=== PATIENT | female | born 2000 | race African-American/Black ===

== ENCOUNTER 2020-07-04 21:45 | Emergency (ER) | payer SELFPAY ==
[~2020-07-04] VITALS: Ht 165.1 cm; Wt 62.6 kg
[2020-07-04] MEDS ORDERED: DEXAMETHASONE 10 MG/ML VIAL PO ONE (22:00)
[2020-07-04] MEDS ORDERED: IBUPROFEN 600MG TABLET PO ONE (22:00)
[2020-07-04] MEDS ORDERED: ACETAMINOPHEN 650MG/20.3ML UDC PO ONE (22:00)
[2020-07-04 23:24] LABS: BASOPHILS % 0.3 % (0.0-2.0); EOSINOPHILS % 0.2 % (0.0-5.0); HEMATOCRIT. 35.6 % (36.0-48.0); HEMOGLOBIN. 11.6 g/dL (12.0-16.0); LYMPHOCYTES % 10.4 % (20.0-50.0); MEAN CORPUSCULAR HEMOGLOBIN 27.5 pg (28.0-32.0); MEAN CORPUSCULAR VOLUME 84.2 fL (81.0-99.0); MEAN PLATELET VOLUME 7.7 fl (7.4-10.4); NEUTROPHILS % 76.1 % (40.0-76.0); PLATELET 318 x1000/uL (130-400); RED BLOOD CELL COUNT 4.23 mill/uL (4.2-5.4); RED CELL DISTRIBUTION WIDTH 15.1 % (11.6-14.6)
[2020-07-04 23:31] LABS: CHLORIDE 105 mEq/L (98-107)
[2020-07-04 23:51] LABS: HCG SCREEN NEGATIVE
[2020-07-05] MEDS ORDERED: IOHEXOL-300 100 ML BOTTLE ONE (00:54)
[2020-07-05] MEDS ORDERED: BENZOCAINE/LANOLIN/ALOE VERA SPRAY TOP ONE (01:15)
[2020-07-05 02:31] VITALS: BP 128/75
== END 2020-07-05 02:32 | disposition home or self-care (01) ==
LOC: ER 21:45
DX: J03.90 Acute tonsillitis, unspecified (principal)
CPT/HCPCS: 36415; 70491; 80048; 84703; 85025; 99285; J1100; Q9967

== ENCOUNTER 2020-07-06 16:17 | Emergency (ER) | payer BC ==
[~2020-07-06] VITALS: Ht 165.1 cm; Wt 63.0 kg
[2020-07-06] MEDS ORDERED: ONDANSETRON HCL 4MG/2ML INJ IV STA (17:09)
[2020-07-06] MEDS ORDERED: DEXAMETHASONE 10 MG/ML VIAL IV ONE (17:15)
[2020-07-06] MEDS ORDERED: SODIUM CHLORIDE 0.9% 1,000 ML IV ONE (17:15)
[2020-07-06] MEDS ORDERED: CEFTRIAXONE 1 G PREMIX 50 ML IV ONE (17:15)
[2020-07-06] MEDS ORDERED: IBUPROFEN 100MG/5ML UDC PO ONE (17:30)
[2020-07-06] MEDS ORDERED: VISCOUS LIDOCAINE 2% 15 ML UDC PO ONE (17:30)
[2020-07-06 20:27] VITALS: BP 129/92
== END 2020-07-06 20:28 | disposition home or self-care (01) ==
LOC: ER 16:17
DX: J03.90 Acute tonsillitis, unspecified (principal)
CPT/HCPCS: 87070; 87430; 96365; 96375; 99284; J0696; J1100; J2405; J7030